=== PATIENT | female | born 1965 | race Hispanic/Latino ===

== ENCOUNTER 2018-09-01 13:51 | Emergency (ER) | payer BC ==
[2018-09-01] MEDS ORDERED: IBUPROFEN 400 MG TABLET ONE (15:18)
== END 2018-09-01 15:29 | disposition home or self-care (01) ==
LOC: EDH 13:51
DX: S83.411A Sprain of medial collateral ligament of right knee, initial encounter (principal); S83.412A Sprain of medial collateral ligament of left knee, initial encounter; Z90.49 Acquired absence of other specified parts of digestive tract; W18.39XA Other fall on same level, initial encounter; Y93.E9 Activity, other interior property and clothing maintenance; Y92.89 Other specified places as the place of occurrence of the external cause; Y99.8 Other external cause status
CPT/HCPCS: 73560

== ENCOUNTER 2020-11-09 23:30 | Emergency (ER) | payer BC, OTHER ==
[~2020-11-09] VITALS: Ht 162.6 cm; Wt 96.6 kg
[2020-11-09 23:33] VITALS: BP 121/69
[2020-11-10] MEDS ORDERED: ACETAMINOPHEN 500 MG TABLET PO SCH (01:30)
[2020-11-10] MEDS ORDERED: SODIUM CHLORIDE 0.9% 1000ML 1,000 ML IV SCH (01:30)
[2020-11-10] MEDS ORDERED: ONDANSETRON HCL 4 MG/2 ML VIAL IVP SCH (01:30)
[2020-11-10 01:56] LABS: BASOPHILS % (AUTO) 0.1 % (0.0-5.0); EOSINOPHILS % (AUTO) 0.1 % (0.0-8.0); HEMATOCRIT 41.4 % (36-48); LYMPHOCYTES % (AUTO) 3.4 % (21.0-51.0); MEAN CORPUSCULAR HEMOGLOBIN 26.6 pg (27.0-33.0); MEAN CORPUSCULAR HGB CONC 32.1 g/dL (32.0-36.0); MEAN CORPUSCULAR VOLUME 82.8 fL (79-99); MONOCYTES % (AUTO) 5.3 % (3.0-13.0); NEUTROPHILS % (AUTO) 90.6 % (40.0-77.0); PLATELET COUNT (AUTO) 164 K/uL (130-400); RED CELL DISTRIBUTION WIDTH 14.5 % (11.0-15.5); WHITE BLOOD COUNT (AUTO) 10.4 K/uL (4.8-10.8)
[2020-11-10 01:58] LABS: APPEARANCE,URINE Clear (CLEAR); BILIRUBIN,URINE Negative (NEGATIVE); COLOR,URINE Yellow (YELLOW); GLUCOSE, URINE (UA) Negative (NEGATIVE); KETONES,URINE Negative (NEGATIVE); LEUKOCYTE ESTERASE ,URINE Small (NEGATIVE); NITRATE,URINE Negative (NEGATIVE); OCCULT BLOOD,URINE Negative (NEGATIVE); PH,URINE 6.5 (5.0-8.0); PROTEIN,URINE Negative (NEGATIVE)
[2020-11-10 02:10] LABS: BACTERIA,URINE None Seen /HPF (None Seen); RBC,URINE None Seen /HPF (0-1); SQUAMOUS EPITHELIAL CELL,UR Moderate /HPF (0-2); WBC,URINE 0-1 /HPF (0-1)
[2020-11-10 02:18] LABS: CREATININE 0.9 mg/dL (0.5-1.5); POTASSIUM 3.6 mmol/L (3.5-5.1)
[2020-11-10 02:22] LABS: ALBUMIN 3.4 g/dL (3.5-5.0); BILIRUBIN,TOTAL 0.5 mg/dL (0.2-1.0); TOTAL PROTEIN, SERUM 7.3 g/dL (6.0-8.3)
[2020-11-10] MEDS ORDERED: CEFTRIAXONE SODIUM 1 GM IVP ONE (04:15)
[2020-11-11] MEDS ORDERED: TRAM-355 PO (13:09)
[2020-11-11] MEDS ORDERED: ONDA4TAB4 PO (13:09)
== END 2020-11-10 05:37 | disposition home or self-care (01) ==
LOC: EDH 23:30
DX: N30.00 Acute cystitis without hematuria (principal); R50.9 Fever, unspecified; R11.2 Nausea with vomiting, unspecified; Z79.899 Other long term (current) drug therapy; Z90.49 Acquired absence of other specified parts of digestive tract
CPT/HCPCS: 36415; 80053; 81001; 83605; 85025; 87804 ×2; 96361; 96374; 96375; 99284; J0696; J2405; J7030

== ENCOUNTER 2020-11-11 07:07 | Emergency (ER) | payer OTHER ==
[~2020-11-11] VITALS: Ht 162.6 cm; Wt 93.0 kg
[2020-11-11] MEDS ORDERED: CEFTRIAXONE SODIUM VIAL 1 GM in SODIUM CHLORIDE 0.9% 50 ML IV SCH (09:30)
[2020-11-11] MEDS ORDERED: KETOROLAC 30MG VIAL (30MG/ML) IVP ONE (09:30)
[2020-11-11] MEDS ORDERED: ACETAMINOPHEN 500 MG TABLET PO ONE (09:30)
[2020-11-11] MEDS ORDERED: ONDANSETRON HCL 4 MG/2 ML VIAL IVP ONE (09:30)
[2020-11-11] MEDS ORDERED: MORPHINE 4 MG SYG (4MG/1ML) IVP ONE (09:30)
[2020-11-11] MEDS ORDERED: SODIUM CHLORIDE 0.9% 1000ML 1,000 ML IV ONE (09:30)
[2020-11-11 09:42] LABS: BASOPHILS % (AUTO) 0.3 % (0.0-5.0); EOSINOPHILS % (AUTO) 0.5 % (0.0-8.0); LYMPHOCYTES % (AUTO) 7.2 % (21.0-51.0); MEAN CORPUSCULAR HEMOGLOBIN 26.8 pg (27.0-33.0); MEAN CORPUSCULAR HGB CONC 32.3 g/dL (32.0-36.0); MONOCYTES % (AUTO) 6.7 % (3.0-13.0); NEUTROPHILS % (AUTO) 84.7 % (40.0-77.0); PLATELET COUNT (AUTO) 139 K/uL (130-400); RED BLOOD CELL COUNT(AUTO) 4.82 MIL/uL (4.00-5.50); RED CELL DISTRIBUTION WIDTH 14.6 % (11.0-15.5); WHITE BLOOD COUNT (AUTO) 8.9 K/uL (4.8-10.8)
[2020-11-11 09:53] LABS: ALBUMIN 3.3 g/dL (3.5-5.0); BILIRUBIN,TOTAL 1.2 mg/dL (0.2-1.0); CREATININE 0.6 mg/dL (0.5-1.5); POTASSIUM 4.6 mmol/L (3.5-5.1); TOTAL PROTEIN, SERUM 7.5 g/dL (6.0-8.3)
[2020-11-11] MEDS ORDERED: KETOROLAC 30MG VIAL (30MG/ML) IVP SCH (10:00)
[2020-11-11] MEDS ORDERED: ACETAMINOPHEN 500 MG TABLET PO SCH (10:00)
[2020-11-11] MEDS ORDERED: SODIUM CHLORIDE 0.9% 1000ML 1,000 ML IV SCH (10:00)
[2020-11-11] MEDS ORDERED: MORPHINE 4 MG SYG (4MG/1ML) IVP SCH (10:00)
[2020-11-11] MEDS ORDERED: ONDANSETRON HCL 4 MG/2 ML VIAL IVP SCH (10:00)
[2020-11-11 10:03] LABS: APPEARANCE,URINE Clear (CLEAR); BILIRUBIN,URINE Negative (NEGATIVE); COLOR,URINE Yellow (YELLOW); GLUCOSE, URINE (UA) Negative (NEGATIVE); KETONES,URINE Negative (NEGATIVE); LEUKOCYTE ESTERASE ,URINE Negative (NEGATIVE); NITRATE,URINE Negative (NEGATIVE); OCCULT BLOOD,URINE Negative (NEGATIVE); PROTEIN,URINE Negative (NEGATIVE)
[2020-11-11 10:14] VITALS: BP 127/66
[2020-11-11] MEDS ORDERED: CEFTRIAXONE SODIUM 1 GM ONE (10:42)
[2020-11-11] MEDS ORDERED: SODIUM CHLORIDE 0.9% 50 ML IV ONE (10:42)
[2020-11-11] MEDS ORDERED: CEFTRIAXONE SODIUM 1 GM IVP SCH (10:45)
[2020-11-11 11:36] VITALS: BP 130/70
[2020-11-11 12:43] VITALS: BP 126/72
[2020-11-11] MEDS ORDERED: ONDA4TAB4 PO (13:09)
[2020-11-11] MEDS ORDERED: TRAM-355 PO (13:09)
[2020-11-11 13:47] VITALS: BP 128/70
== END 2020-11-11 14:15 | disposition home or self-care (01) ==
LOC: EDH 07:07
DX: R10.84 Generalized abdominal pain (principal); M54.9 Dorsalgia, unspecified; R50.9 Fever, unspecified; R35.0 Frequency of micturition; R11.0 Nausea; E66.9 Obesity, unspecified
CPT/HCPCS: 36415; 74176; 80053; 81003; 85025; 87040 ×2; 87088; 96361 ×2; 96374; 96375; 99285; J0696; J1885; J2270; J2405; J7030

== ENCOUNTER → 2024-12-02 | Outpatient (CLI) | payer BC ==
[~2024-12-02] MED LIST: ONDA4TAB4 PO; TRAM-543 PO
--- NOTE | 2024-12-02 16:27 | HMCIMG ---
SACRUM/COCCYX 2+VWS HISTORY: Sacrococcygeal disorder COMPARISON: None TECHNIQUE: 3 images of the sacrum and coccyx were obtained. FINDINGS: There is no acute displaced fracture or dislocation. Degenerative changes are seen. IMPRESSION: 1. Findings as described above.
--- NOTE | 2024-12-02 16:29 | HMCIMG ---
HIP BILAT 3-4VW REASON: Sacrococcygeal disorders, not elsewhere classified. COMPARISON: None TECHNIQUE: 3 images of bilateral hips were obtained. FINDINGS: Bilateral hip joint space narrowing is seen. There is no acute displaced fracture or dislocation. IMPRESSION: Findings as described above.
== END | disposition home or self-care (01) ==
LOC: RAH 13:51
PROVIDERS: ATTEND Anesthesiology Pain Medicine
DX: M47.818 Spondylosis without myelopathy or radiculopathy, sacral and sacrococcygeal region (principal); M53.3 Sacrococcygeal disorders, not elsewhere classified; M25.852 Other specified joint disorders, left hip; M25.851 Other specified joint disorders, right hip
CPT/HCPCS: 72220; 73522